=== PATIENT | female | born 1990 | race Hispanic/Latino ===

== ENCOUNTER 2025-01-05 20:04 | Emergency (ER) | payer SELFPAY ==
[~2025-01-05] VITALS: Ht 167.6 cm; Wt 127.5 kg
[2025-01-05] MEDS ORDERED: LOPERAMIDE HCL 2 MG CAP PO ONE (21:00)
[2025-01-05] MEDS: KETOROLAC TROMETHAMINE 60 MG/2 ML VIAL IM ONE (21:02)
[2025-01-05] MEDS ORDERED: LOPERAMIDE2 MG PO (21:30)
[2025-01-05] MEDS: LOPERAMIDE HCL 2 MG CAP PO ONE (21:33)
[2025-01-05 21:42] VITALS: BP 141/71; PULSE 71; RESP 18; TEMP 98.4; O2SAT 100
== END 2025-01-05 21:46 | disposition home or self-care (01) ==
LOC: FSED 20:07
DX: R19.7 Diarrhea, unspecified (principal); N92.0 Excessive and frequent menstruation with regular cycle; E66.9 Obesity, unspecified
CPT/HCPCS: 80048; 81003; 81025; 85025; 96372; 99284; J1885